=== PATIENT | female | born 1995 | race American Indian/Alaskan Native ===

== ENCOUNTER 2017-05-18 09:56 | Emergency (ER) | payer SELFPAY ==
[2017-05-18] MEDS ORDERED: Sodium Chloride 0.9% 10 ML Syringe FLUSH PRN (10:17)
--- NOTE | 2017-05-18 10:17 | EDM.PDOC ---
ED HPI GENERAL MEDICAL PROBLEM - General Chief Complaint: Flank Pain Stated Complaint: [id number] KIDNEY STONE Time Seen by Provider: 05/18/17 10:13 Source of Information: Reports: Patient History Limitations: Reports: No Limitations - History of Present Illness INITIAL COMMENTS - FREE TEXT/NARRATIVE: 21 yo female presents with left flank pain. States she has a history of Kidney stones and this feels like an attack. Pain started at 6 am. Pt writhing in bed and appears uncomfortable. States that she has had to have laser surgery in past to remove stones. No c/o n/v/d or other complaints. Onset: Today Onset Time: 06:00 Duration: Constant, Getting Worse Location: Reports: Back Quality: Reports: Burning, Same as Previous Episode, Sharp Severity: Severe Improves with: Reports: None Worsens with: Reports: Movement Associated Symptoms: Reports: No Other Symptoms Left Flank Pain Score (Numeric/FACES): 9 - Related Data Allergies Allergy/AdvReac Type Severity Reaction Status Date / Time codeine Allergy Itching Verified 09/23/16 20:34 Sulfa (Sulfonamide Allergy Burning Verified 09/23/16 20:33 Antibiotics) Home Meds: Home Meds Mirtazapine [Remeron] 30 mg PO BEDTIME 09/23/16 [History] Sertraline [Zoloft] 25 mg PO DAILY 09/23/16 [History] buPROPion [Wellbutrin] 09/23/16 [History] Past Medical History Genitourinary History: Reports: Renal Calculus Psychiatric History: Reports: Anxiety, Bipolar, Depression Other Psychiatric History: borderline personality disorder - Past Surgical History HEENT Surgical History: Reports: Myringotomy w Tube(s), Tonsillectomy Female Surgical History: Reports: Lithotripsy/ESWL, Tubal Ligation Musculoskeletal Surgical History: Reports: Other (See Below) Other Musculoskeletal Surgeries/Procedures:: elbow and neck surgery Social & Family History - Family History Family Medical History: Noncontributory - Tobacco Use Smoking Status *Q: Current Every Day Smoker Years of Tobacco use: 9 Packs/Tins Daily: 0.5 - Caffeine Use Caffeine Use: Reports: None - Recreational Drug Use Recreational Drug Use: No ED ROS GENERAL - Review of Systems Review Of Systems: ROS reveals no pertinent complaints other than HPI. ED EXAM, RENAL/ - Physical Exam Exam: See Below Exam Limited By: No Limitations General Appearance: Alert, WD/WN, No Apparent Distress, Other (uncomfortable) Eye Exam: Bilateral Eye: PERRL Respiratory/Chest: No Respiratory Distress, Lungs Clear, Normal Breath Sounds, No Accessory Muscle Use, Chest Non-Tender Cardiovascular: Normal Peripheral Pulses, Regular Rate, Rhythm, No Edema, No Gallop, No JVD, No Murmur, No Rub GI/Abdominal: Normal Bowel Sounds, Soft, No Organomegaly, No Distention, No Abnormal Bruit, No Mass, Tender (LLQ) Back Exam: Normal Inspection, Full Range of Motion, CVA Tenderness (L) Extremities: Normal Inspection, Normal Range of Motion, Non-Tender, Normal Capillary Refill, No Pedal Edema Neurological: Alert, Oriented, CN II-XII Intact, Normal Cognition, Normal Gait, No Motor/Sensory Deficits Skin Exam: Warm, Dry, Intact, Normal Color, No Rash Course - Vital Signs Last Recorded V/S: Last Vital Signs Temp 97.2 F 05/18/17 10:01 Pulse 68 05/18/17 11:09 Resp 16 05/18/17 11:09 BP 135/68 05/18/17 11:09 Pulse Ox 98 05/18/17 11:09 - Orders/Labs/Meds Orders: Active Orders 24 hr Category Date Time Status Sodium Chloride 0.9% [Saline Flush] Med 05/18/17 10:17 Active 10 ml FLUSH ASDIRECTED PRN cefTRIAXone [Rocephin] 1 gm Med 05/18/17 12:46 Active Sodium Chloride 0.9% [Normal Saline] 50 ml IV ONETIME Saline Lock Insert [OM.PC] Stat Oth 05/18/17 10:17 Ordered Medication Orders Ceftriaxone Sodium 1 gm/ (Sodium Chloride) 50 mls @ 100 mls/hr IV ONETIME ONE Stop: 05/18/17 13:15 Sodium Chloride (Saline Flush) 10 ml FLUSH ASDIRECTED PRN PRN Reason: Keep Vein Open Last Admin: 05/18/17 10:32 Dose: 10 ml Labs: Laboratory Tests 05/18/17 05/18/17 05/18/17 Range/Units 10:27 10:27 11:02 WBC 18.1 H (5.0-10.0) 10^3/uL RBC 5.42 H (4.2-5.4) 10^6/uL Hgb 15.9 (12.0-16.0) g/dL Hct 46.3 (37.0-47.0) % MCV 85.4 (80-100) fL MCH 29.3 (27.0-34.0) pg MCHC 34.3 (33.0-35.0) g/dL Plt Count 310 (150-450) 10^3/uL Neut % (Auto) 86.2 H (42.2-75.2) % Lymph % (Auto) 8.7 L (20.5-50.1) % [place] % (Auto) 4.4 (2-8) % Eos % (Auto) 0.4 L (1.0-3.0) % Baso % (Auto) 0.3 (0.0-1.0) % Sodium 140 (135-145) mmol/L Potassium 4.2 (3.6-5.0) mmol/L Chloride 104 (101-111) mmol/L Carbon Dioxide 23.0 (21.0-31.0) mmol/L Anion Gap 17.2 BUN 14 (7-18) mg/dL Creatinine 0.9 (0.6-1.3) mg/dL Est Cr Clr Drug Dosing TNP Estimated GFR (MDRD) > 60 Glucose 120 H (74-105) mg/dL Calcium 9.9 (8.4-10.2) mg/dl Urine Color Yellow (YELLOW) Urine Appearance Cloudy (CLEAR) Urine pH 6.0 (5.0-9.0) Ur Specific [place] 1.020 (1.005-1.030) Urine Protein 30 H (NEGATIVE) Urine Glucose (UA) Negative (NEGATIVE) Urine Ketones Negative (NEGATIVE) Urine Occult Blood Large H (NEGATIVE) Urine Nitrite Negative (NEGATIVE) Urine Bilirubin Negative (NEGATIVE) Urine Urobilinogen 0.2 (0.2-1.0) mg/dL Ur Leukocyte Esterase Trace H (NEGATIVE) Urine RBC >100 H /HPF Urine WBC 0-5 (0-5/HPF) /HPF Ur Epithelial Cells Few /HPF Urine Bacteria Moderate H (0-FEW/HPF) /HPF Urine Mucus Rare /LPF 05/18/17 Range/Units 11:35 WBC (5.0-10.0) 10^3/uL RBC (4.2-5.4) 10^6/uL Hgb (12.0-16.0) g/dL Hct (37.0-47.0) % MCV (80-100) fL MCH (27.0-34.0) pg MCHC (33.0-35.0) g/dL Plt Count (150-450) 10^3/uL Neut % (Auto) (42.2-75.2) % Lymph % (Auto) (20.5-50.1) % [place] % (Auto) (2-8) % Eos % (Auto) (1.0-3.0) % Baso % (Auto) (0.0-1.0) % Sodium (135-145) mmol/L Potassium (3.6-5.0) mmol/L Chloride (101-111) mmol/L Carbon Dioxide (21.0-31.0) mmol/L Anion Gap BUN (7-18) mg/dL Creatinine (0.6-1.3) mg/dL Est Cr Clr Drug Dosing Estimated GFR (MDRD) Glucose (74-105) mg/dL Calcium (8.4-10.2) mg/dl Urine Color Yellow (YELLOW) Urine Appearance Slightly cloudy (CLEAR) Urine pH 7.0 (5.0-9.0) Ur Specific [place] 1.020 (1.005-1.030) Urine Protein Negative (NEGATIVE) Urine Glucose (UA) Negative (NEGATIVE) Urine Ketones Negative (NEGATIVE) Urine Occult Blood Moderate H (NEGATIVE) Urine Nitrite Negative (NEGATIVE) Urine Bilirubin Negative (NEGATIVE) Urine Urobilinogen 0.2 (0.2-1.0) mg/dL Ur Leukocyte Esterase Trace H (NEGATIVE) Urine RBC 50-75 H /HPF Urine WBC 5-10 H (0-5/HPF) /HPF Ur Epithelial Cells Rare /HPF Urine Bacteria Moderate H (0-FEW/HPF) /HPF Urine Mucus Few H /LPF Meds: Medications Generic Name Dose Route Start Last Admin Trade Name Freq PRN Reason Stop Dose Admin Ceftriaxone Sodium 1 gm/ 50 mls @ 100 mls/hr 05/18/17 12:46 Sodium Chloride IV 05/18/17 13:15 ONETIME ONE Sodium Chloride 10 ml 05/18/17 10:17 05/18/17 10:32 Saline Flush FLUSH 10 ml ASDIRECTED PRN Administration Keep Vein Open Discontinued Medications Generic Name Dose Route Start Last Admin Trade Name Blakeq PRN Reason Stop Dose Admin Hydromorphone HCl 1 mg 05/18/17 10:18 05/18/17 10:33 Dilaudid IVPUSH 05/18/17 10:19 1 mg ONETIME ONE Administration Hydromorphone HCl 1 mg 05/18/17 11:37 05/18/17 12:10 Dilaudid IVPUSH 05/18/17 11:38 1 mg ONETIME ONE Administration Sodium Chloride 1,000 mls @ 999 mls/hr 05/18/17 10:19 05/18/17 10:33 Normal Saline IV 05/18/17 11:19 999 mls/hr .BOLUS ONE Administration Ketorolac Tromethamine 30 mg 05/18/17 10:18 05/18/17 10:32 Toradol IVPUSH 05/18/17 10:19 30 mg ONETIME ONE Administration Ondansetron HCl 4 mg 05/18/17 10:22 05/18/17 10:34 Zofran IV 05/18/17 10:23 4 mg ONETIME ONE Administration - Re-Assessments/Exams Free Text/Narrative Re-Assessment/Exam: 05/18/17 10:22 Pt now having vomiting. will give antiemetics 05/18/17 11:[address] Medina, Urology at who recommends a cath urinalysis to determine contamination of sample. Recommends to call him with the results and if bacteria remains present pt will need transfer. Will obtain new UA and call with results. 05/18/17 12:[address] Medina who suggest pt be transferred to [facility] for stent placement. Case discussed with Dr. Linn, hospitalist who accepts pt. Departure - Departure Time of Disposition: 12:48 Disposition: DC/Tfer to Acute Hospital 02 Condition: Good Clinical Impression: Nephrolithiasis - Discharge Information Forms: ED Department Discharge, Interfacility Transfer EMTALA - My Orders Last 24 Hours: My Active Orders 05/18/17 10:17 Sodium Chloride 0.9% [Saline Flush] 10 ml FLUSH ASDIRECTED PRN Saline Lock Insert [OM.PC] Stat 05/18/17 12:46 cefTRIAXone [Rocephin] 1 gm Sodium Chloride 0.9% [Normal Saline] 50 ml IV ONETIME - Assessment/Plan Last 24 Hours: My Active Orders 05/18/17 10:17 Sodium Chloride 0.9% [Saline Flush] 10 ml FLUSH ASDIRECTED PRN Saline Lock Insert [OM.PC] Stat 05/18/17 12:46 cefTRIAXone [Rocephin] 1 gm Sodium Chloride 0.9% [Normal Saline] 50 ml IV ONETIME
[2017-05-18] MEDS ORDERED: Ketorolac 30 MG/ML SDV IVPUSH ONE (10:18)
[2017-05-18] MEDS ORDERED: HYDROmorphone 1 MG/ML Syringe IVPUSH ONE ×2 (10:18→11:37)
[2017-05-18] MEDS ORDERED: Sodium Chloride 0.9% 1,000 ML IV ONE (10:19)
[2017-05-18] MEDS ORDERED: Ondansetron 4 MG/2 ML SDV IV ONE (10:22)
[2017-05-18 10:51] LABS: CHLORIDE,CL 104 mmol/L (101-111); SODIUM,NA 140 mmol/L (135-145)
--- NOTE | 2017-05-18 11:06 | CT ---
Clinical history: 21 year-old 210 pound hypertensive female smoker complaining of left flank pain (hi story "kidney stones" reported back on 16 June 2012 exam i.e. "single tiny calyceal calcifications each kidney"). Scan technique: Volume acquisition of data emergency unenhanced CT scan of the abdomen and pelvis (ki dneys/ureters/bladder) obtained while the patient was lying supine on the Siemens multi slice CT scan ner [place], [place]. All data archived in the PAC system for storage, reformatting and study. Interpretation: Abnormal. 1. Solitary 3.2 mm diameter oval calcification lodged in the distal left ureter at the ureteral vesic le junction (UVJ) with associated mild ipsilateral ureterectasis and pyelectasis proximally. 2. Additional 3-4 mm (x2) calyceal calcifications, mid and lower pole, left kidney. 3. Tiny punctate calyceal calcification midpole contralateral right kidney. No obstructive uropathy o n the right. 4. Normal retrocecal appendix right lower quadrant. 5 gallbladder, unenhanced liver, stomach, spleen, pancreas and adrenal glands unremarkable. 6. Normal midline uterus (tiny physiologic cysts ovaries particularly prominent on the left) 7. No pelvic or abdominal mass lesion, inflammatory "dirty" peritoneal fat, signs of mechanical bowel obstruction, ascites or free intraperitoneal air. CONCLUSION: Nephrolithiasis. Partially obstructing distal left ureterolith new since 16 June 2012 exam.
[2017-05-18 11:09] VITALS: BP 135/68
[2017-05-18] MEDS ORDERED: cefTRIAXone 1 GM in Sodium Chloride 0.9% 50 ML IV ONE (12:46)
== END 2017-05-18 13:40 ==
LOC: DL.ED 09:56
DX: N20.2 Calculus of kidney with calculus of ureter (principal); F17.210 Nicotine dependence, cigarettes, uncomplicated; F32.9 Major depressive disorder, single episode, unspecified; Z88.5 Allergy status to narcotic agent; Z88.2 Allergy status to sulfonamides; Z79.899 Other long term (current) drug therapy; Z87.442 Personal history of urinary calculi
CPT/HCPCS: 36415; 74176; 80048; 81001; 85025; 96361; 96365; 96375; 96376; 99285; J0696; J1170; J1885; J2405; J7030; J7050

== ENCOUNTER 2023-12-24 13:44 | Inpatient (IN) | payer MEDICAID ==
[2023-12-24] MEDS: Magnesium Sulfate/Water 4 GM in Premix Bag 1 BAG IV ONE (15:10)
[2023-12-24 15:19] LABS: HEMATOCRIT 37.4 % (37.0-47.0); HEMOGLOBIN 12.1 g/dL (12.0-16.0); MEAN CORPUSCULAR HEMOGLOBIN 25.6 pg (27.0-34.0); MEAN CORPUSCULAR HGB CONC 32.4 g/dL (33.0-35.0); MEAN CORPUSCULAR VOLUME 79.2 fL (80-100); RED BLOOD CELL COUNT 4.72 10^6/uL (4.2-5.4); WHITE BLOOD CELL COUNT,WBC 12.3 10^3/uL (5.0-10.0)
[2023-12-24] MEDS ORDERED: Tranexamic Acid 1,000 MG in Sodium Chloride 0.9% 100 ML IV PRN (15:20)
[2023-12-24] MEDS ORDERED: Carboprost Tromethamine 250 MCG/1 ML Amp IM PRN (15:20)
[2023-12-24] MEDS: Magnesium Sulfate/Water 2 GM in Premix Bag 1 BAG IV ONE (15:20)
[2023-12-24] MEDS ORDERED: fentaNYL 100 MCG/2 ML SDV IVPUSH PRN (15:20)
[2023-12-24] MEDS ORDERED: Sodium Chloride 0.9% 10 ML Syringe FLUSH PRN (15:20)
[2023-12-24] MEDS ORDERED: Labetalol 20 MG/4 ML Syringe IVPUSH PRN (15:24)
[2023-12-24] MEDS ORDERED: Calcium Gluconate 10% 1 GM/10 ML SDV IV PRN (15:24)
[2023-12-24 15:38] LABS: ALANINE AMINOTRANSFERASE,ALT 25 U/L (14-59); ASPARTATE AMNIOTRANSFERASE,AST 13 U/L (15-37); BLOOD UREA NITROGEN,BUN 15 mg/dL (7-18); CREATININE 0.69 mg/dL (0.55-1.02); LACTATE DEHYDROGENASE,LDH 176 U/L (81-234); URIC ACID 3.8 mg/dL (2.6-6.0)
[2023-12-24 15:42] LABS: ESTIMATED GFR 120 mL/min (>=60)
[2023-12-24 15:47] LABS: APPEARANCE,URINE CLEAR (CLEAR); BILIRUBIN,URINE NEGATIVE (NEGATIVE); COLOR,URINE YELLOW (YELLOW); GLUCOSE,URINE NEGATIVE (NEGATIVE); KETONES,URINE NEGATIVE (NEGATIVE); LEUKOCYTE ESTERASE,URINE NEGATIVE (NEGATIVE); NITRITE,URINE NEGATIVE (NEGATIVE); OCCULT BLOOD,URINE SMALL (NEGATIVE); PROTEIN,URINE NEGATIVE (NEGATIVE); UROBILINOGEN,URINE 0.2 mg/dL (0.2-1.0)
[2023-12-24 15:59] LABS: CREATININE,URINE RAND 44.03 mg/dL (No establ ref range); PROTEIN CREATININE RATIO,URINE 365.7 mg/g (<150.0); PROTEIN,URINE RANDOM 16.1 mg/dL (0.0-11.9)
[2023-12-24] MEDS: Magnesium Sulfate/Water 20 GM in Premix Bag 1 BAG IV SCH (15:59)
[2023-12-24] MEDS: Magnesium Sulfate/Water 50 ML ONE (16:17)
[2023-12-24] MEDS: Magnesium Sulfate/Water 100 ML ONE (16:17)
[2023-12-24] MEDS: Magnesium Sulfate/Water 20 GM/500 ML BAG ONE (16:17)
[2023-12-24] MEDS: Acetaminophen 500 MG Tab PO ONE (16:18)
[2023-12-24] MEDS: Acetaminophen 500 MG Tab ONE (16:25)
[2023-12-24] MEDS: Penicillin G Potassium 5 MILLUNITS in Sodium Chloride 0.9% 100 ML IV ONE (16:45)
[2023-12-24] MEDS: Misoprostol 25 MCG (1/4 of 100 MCG) Tab VAG SCH (17:55)
[2023-12-24] MEDS: Penicillin G Potassium 3 MILLUNITS in Sodium Chloride 0.9% 100 ML IV SCH ×2 (18:08→20:31)
[2023-12-24] MEDS: Nicotine 14 MG/24 Hr Patch TRDERM SCH (20:10)
[2023-12-24] MEDS: Lactated Ringers 1,000 ML IV SCH (20:34)
[2023-12-24] MEDS: Sodium Chloride 0.9% 1,000 ML IV SCH (20:35)
[2023-12-24 20:38] LABS: AMPHETAMINES,URINE NEGATIVE (NEGATIVE); BARBITURATES,URINE NEGATIVE (NEGATIVE); BENZODIAZEPINE,URINE NEGATIVE (NEGATIVE); MDMA (ECSTASY), URINE NEGATIVE (NEGATIVE); METHADONE,URINE NEGATIVE (NEGATIVE); METHAMPHETAMINES,URINE POSITIVE (NEGATIVE); OPIATES,URINE NEGATIVE (NEGATIVE); OXYCODONE,URINE NEGATIVE (NEGATIVE); PHENCYCLIDINE,URINE NEGATIVE (NEGATIVE); TCA,URINE NEGATIVE (NEGATIVE)
[2023-12-24] MEDS: hydrOXYzine HCl 25 MG Tab PO ONE (21:20)
[2023-12-25] MEDS: buPROPion 150 MG Tab.ER PO SCH (00:43)
[2023-12-25] MEDS: Zolpidem 5 MG Tab PO ONE (00:58)
[2023-12-25] MEDS: Acetaminophen 325 MG Tab PO PRN (08:55)
[2023-12-25] MEDS: Docusate Sodium 100 MG Cap PO PRN (09:15)
[2023-12-25] MEDS: URSODIOL 300 MG PO SCH (12:12)
[2023-12-25] MEDS: hydrOXYzine HCl 25 MG Tab PO PRN (21:57)
[2023-12-25] MEDS: Morphine 2 MG/ML SYRINGE IVPUSH ONE (21:58)
[2023-12-26] MEDS: Oxytocin/Normal Saline 30 UNIT/500 ML BAG IV SCH (04:30)
[2023-12-26] MEDS: Calcium Carbonate 500 MG Tab.Chew PO PRN (10:00)
[2023-12-26 11:08] LABS: BASOPHILS PERCENT AUTO 0.3 % (0.0-1.0); EOSINOPHILS PERCENT AUTO 1.9 % (1.0-3.0); HEMATOCRIT 31.1 % (37.0-47.0); LYMPHOCYTES PERCENT AUTO 13.2 % (20.5-50.1); MEAN CORPUSCULAR HEMOGLOBIN 25.7 pg (27.0-34.0); MEAN CORPUSCULAR HGB CONC 32.2 g/dL (33.0-35.0); MEAN CORPUSCULAR VOLUME 79.9 fL (80-100); MONOCYTES PERCENT AUTO 7.9 % (2-8); NEUTROPHILS PERCENT AUTO 76.7 % (42.2-75.2); PLATELET COUNT,PLT 266 10^3/uL (150-450); RED BLOOD CELL COUNT 3.89 10^6/uL (4.2-5.4); WHITE BLOOD CELL COUNT,WBC 14.4 10^3/uL (5.0-10.0)
[2023-12-26 11:21] LABS: CHOLESTEROL HDL 53 mg/dL (40-59); CHOLESTEROL LDL CALCULATED 65 mg/dL (0-100); CHOLESTEROL TOTAL 184 mg/dL (0-199); TRIGLYCERIDES 329 mg/dL (0-149)
[2023-12-26] MEDS: Ondansetron 4 MG/2 ML SDV IVPUSH PRN (12:01)
[2023-12-26] MEDS ORDERED: Bupivacaine 0.25% 10 ML SDV ONE ×2 (12:04→23:28)
[2023-12-26] MEDS ORDERED: fentaNYL 100 MCG/2 ML SDV ONE ×2 (12:04→23:28)
[2023-12-26] MEDS ORDERED: ePHEDrine 50 MG/ML SDV IVPUSH PRN (12:31)
[2023-12-26] MEDS ORDERED: Phenylephrine HCl In 0.9% NaCl 1 MG/10 ML Syringe IVPUSH PRN (12:31)
[2023-12-26] MEDS ORDERED: Ropivacaine 200 MG in Premix Bag 1 BAG EPIDUR SCH (12:45)
[2023-12-26] MEDS: Famotidine 20 MG Tab PO SCH (14:51)
[2023-12-26] MEDS: Lactated Ringers 1,000 ML IV ONE (16:00)
[2023-12-26 17:09] LABS: ANION GAP 13.9 mEq/L (7-13); BILIRUBIN TOTAL 0.1 mg/dL (0.2-1.0); BUN/CREATININE RATIO 11.7 (No establ ref range); CALCIUM 7.1 mg/dL (8.5-10.1); CREATININE 0.77 mg/dL (0.55-1.02); EST CRCL DRUG DOSING (CG) 100.92 mL/min; POTASSIUM,K 4.9 mmol/L (3.5-5.1); PROTEIN TOTAL,TP 6.2 g/dL (6.4-8.2)
[2023-12-26 17:25] LABS: A/G RATIO 0.48
[2023-12-27] MEDS ORDERED: Oxytocin/Normal Saline 30 UNIT/500 ML BAG ONE ×2 (09:30→09:41)
[2023-12-27] MEDS ORDERED: ceFAZolin 2 GM Vial ONE (09:41)
[2023-12-27] MEDS ORDERED: Methylergonovine 0.2 MG/1 ML Amp ONE (09:42)
[2023-12-27] MEDS: Misoprostol 400 MCG (4 X 100 MCG TAB) RECTAL PRN (11:45)
[2023-12-27] MEDS ORDERED: ePHEDrine 50 MG/ML SDV IVPUSH PRN (12:24)
[2023-12-27] MEDS ORDERED: Methylergonovine 0.2 MG/1 ML Amp IM PRN (12:24)
[2023-12-27] MEDS ORDERED: Tranexamic Acid 1,000 MG in Sodium Chloride 0.9% 100 ML IV PRN (12:24)
[2023-12-27] MEDS ORDERED: Naloxone 2 MG/2 ML Syringe IVPUSH PRN (12:24)
[2023-12-27] MEDS ORDERED: Ibuprofen 800 MG Tab PO PRN (12:24)
[2023-12-27] MEDS ORDERED: diphenhydrAMINE 50 MG/ML SDV IVPUSH PRN (12:24)
[2023-12-27] MEDS ORDERED: Misoprostol 400 MCG (4 X 100 MCG TAB) RECTAL PRN (12:24)
[2023-12-27] MEDS ORDERED: Acetaminophen/oxyCODONE 325-5 MG Tab PO PRN (12:24)
[2023-12-27] MEDS ORDERED: Ondansetron 4 MG/2 ML SDV IVPUSH PRN (12:24)
[2023-12-27] MEDS ORDERED: Docusate Sodium 100 MG Cap PO PRN (12:24)
[2023-12-27] MEDS ORDERED: Carboprost Tromethamine 250 MCG/1 ML Amp IM PRN (12:24)
[2023-12-27] MEDS ORDERED: Lactated Ringers 1,000 ML IV SCH (12:30)
[2023-12-27] MEDS: Simethicone 80 MG Tab.Chew PO SCH (17:15)
[2023-12-27] MEDS: Lidocaine 1% 30 ML SDV INJECT ONE (17:25)
[2023-12-27] MEDS: Ketorolac 30 MG/ML SDV IVPUSH SCH (18:08)
[2023-12-27] MEDS: Magnesium Sulfate/Water 20 GM in Premix Bag 1 BAG IV SCH (20:22)
[2023-12-27] MEDS: Acetaminophen 325 MG Tab PO PRN (21:09)
[2023-12-28 00:44] LABS: HEMATOCRIT 26.1 % (37.0-47.0); HEMOGLOBIN 8.4 g/dL (12.0-16.0); MEAN CORPUSCULAR HEMOGLOBIN 25.9 pg (27.0-34.0); MEAN CORPUSCULAR HGB CONC 32.2 g/dL (33.0-35.0); MEAN CORPUSCULAR VOLUME 80.6 fL (80-100); RED BLOOD CELL COUNT 3.24 10^6/uL (4.2-5.4)
[2023-12-28] MEDS: Prenatal Multivitamin with Calcium/Folic Acid/Iron Tab PO SCH (08:47)
[2023-12-28] MEDS: Ferrous Sulfate 325 MG Tab PO SCH (08:47)
[2023-12-28] MEDS: Acetaminophen/oxyCODONE 325-5 MG Tab PO PRN (13:38)
[2023-12-28] MEDS: Ibuprofen 800 MG Tab PO PRN (17:08)
[2023-12-29 08:40] VITALS: BP 129/73
[2023-12-29 11:13] VITALS: PULSE 88
== END 2023-12-29 11:05 | disposition home or self-care (01) | DRG 788 ==
LOC: DL.US 13:44 → DL.OBCHECK 13:44 → DL.OB 13:49 → UNDOADMOB 13:49 → DL.OB 15:16 → UNDOADMOB 15:16 → DL.OB 15:20 → OBSVTOIN 12-27 10:55
PROVIDERS: ADMIT Family Medicine; ATTEND Family Medicine
PROC: 10D00Z1 Extraction of Products of Conception, Low, Open Approach (ICD-10-PCS; principal; 2023-12-27 10:00)
DX: O14.14 Severe pre-eclampsia complicating childbirth (principal); Z3A.36 36 weeks gestation of pregnancy; Z37.0 Single live birth; O99.824 Streptococcus B carrier state complicating childbirth; O26.643 Intrahepatic cholestasis of pregnancy, third trimester; O99.344 Other mental disorders complicating childbirth; F43.10 Post-traumatic stress disorder, unspecified; F41.9 Anxiety disorder, unspecified; F32.A Depression, unspecified; F31.9 Bipolar disorder, unspecified; O62.1 Secondary uterine inertia; O76 Abnormality in fetal heart rate and rhythm complicating labor and delivery
CPT/HCPCS: 01967; 01968; 36415; 51702; 59025; 71045; 76819; 80053; 80061; 80305-QW; 81003; 82565; 82570; 83615; 83735; 84156; 84450; 84460; 84520; 84550; 85025; 85027; 94010; A9270-GY; J1885; J2270; J2405; J2540; J2590; J3475; J3490; J7030; J7120